=== PATIENT | male | born 1940 | race Caucasian/White ===

== ENCOUNTER 2019-12-04 13:53 | Inpatient (IN) | payer MEDICARE ==
[~2019-12-04] VITALS: Ht 185.4 cm; Wt 111.0 kg
[~2019-12-04 13:53] MED LIST: ASPI325T17 PO; METF500T17 PO; METO50TA82 PO; OXYC5TAB3 PO; SIMV20TA19 PO
--- NOTE | 2019-12-04 14:20 | NUR ---
NILES (P.O.AMalia CONNOR [phone]
[2019-12-04] MEDS ORDERED: PROPOFOL 100 ML IV ONE (14:24)
[2019-12-04] MEDS ORDERED: SODIUM BICARB 8.4%, 50ML SYRINGE ONE ×3 (14:25→22:23)
[2019-12-04] MEDS ORDERED: CALCIUM CHLORIDE 10%, 10ML SYR ONE (14:25)
[2019-12-04 14:26] LABS: MEAN CORPUSCULAR HEMOGLOBIN 28.9 pg (27.5-34.5); MEAN CORPUSCULAR HGB CONC 31.9 g/dL (33.2-36.2); MEAN CORPUSCULAR VOLUME 90.3 fL (81-97); MEAN PLATELET VOLUME 7.7 fL (7.4-10.4); PLATELET COUNT 167 x10^3/uL (130-400); RED BLOOD COUNT 4.74 x10^6/uL (4.38-5.82); RED CELL DISTRIBUTION WIDTH 16.2 % (9.4-14.8)
[2019-12-04] MEDS ORDERED: SODIUM CHLORIDE FLUSH 10ML SYR IVF ONE (14:30)
[2019-12-04] MEDS ORDERED: POTASSIUM CHLORIDE 40 MEQ in SODIUM CHLORIDE 0.9% 500 ML IV ONE (14:30)
[2019-12-04] MEDS ORDERED: NOREPINEPHRINE 8 MG in SODIUM CHLORIDE 0.9% 242 ML IV PRN (14:30)
[2019-12-04 14:35] LABS: INTERNATIONAL NORMALIZED RATIO 1.09 (0.93-1.1); PROTHROMBIN TIME 11.6 Seconds (9.6-11.5)
[2019-12-04 14:37] LABS: ALANINE AMINOTRANSFERASE 227 U/L (12-78); ALBUMIN 3.4 g/dL (3.4-5.0); ANION GAP 15 mmol/L (5-15); CALCIUM 8.5 mg/dL (8.5-10.1); CHLORIDE 110 mmol/L (98-107); CREATININE 1.87 mg/dL (0.7-1.3)
--- NOTE | 2019-12-04 14:39 | NUR ---
Primary RN Ritu at bedside w/ RN Dana & EMT Sinan at bedside initiating hypothermia protocol, place NG & mahoney. MD Helms intubated pt @ 1404 w/ RSI 8.0 ET tube, 24 @ lips, confirmed w/ bilateral breath sounds & positive color change & symmetric chest rise. MD Helms placed right triple lumen IJ CVA using US to confirm placement
[2019-12-04 14:42] LABS: ALKALINE PHOSPHATASE 61 U/L (45-117); BILIRUBIN,TOTAL 0.3 mg/dL (0.2-1.0); TOTAL PROTEIN 6.3 g/dL (6.4-8.2)
[2019-12-04 14:44] LABS: TROPONIN I 0.793 ng/mL (0.000-0.045)
[2019-12-04 15:04] LABS: FREE T4 (FREE THYROXINE) 0.84 ng/dL (0.76-1.46)
[2019-12-04 15:09] LABS: MD YES
[2019-12-04 15:12] LABS: <PLATELET ESTIMATE> ADEQUATE; <PLT MORPHOLOGY> NORMAL PLT MORPH; ANISOCYTOSIS 1+; BAND#(MANUAL) 1.19 x10^3/uL; BANDS%(MANUAL) 9 % (0-7); LYMPHS% (MANUAL) 50 % (22-44); MONOS% (MANUAL) 3 % (2-9); NRBC % (MANUAL) 1 % (0-1); OVALOCYTES 1+; SEG#(MANUAL) 5.02 x10^3/uL (1.8-6.8); SEGS% (MANUAL) 38 % (42-75)
--- NOTE | 2019-12-04 15:12 | NUR ---
POTASSIUM INFUSING PER ORDER. ARTIC SUN PADS IN PLACE, HYPOTHERMIA PROTOCOL. VENT SETTINGS PER RT. AC 12, PEEP 5, V 500, O2 100%.
--- NOTE | 2019-12-04 15:28 | NUR ---
NEXT OF KIN LIZZY HOROWITZ [phone] PER THIS FAMILY MEMBER, GEETA IS NOT THE P.O.A. FOR HIS PT.
--- NOTE | 2019-12-04 15:29 | NUR ---
PT STARTING TO STIR AND BITE AT ETT, PROPOFOL GTT STARTED. PO SUCTIONING WITH BILLYKAUER. VS UPDATED IN COMPUTER.
[2019-12-04] MEDS ORDERED: SODIUM PHOSPHATE 20 MMOL in SODIUM CHLORIDE 0.9% 250 ML IVPB PRN (15:35)
[2019-12-04] MEDS ORDERED: PROPOFOL 100 ML IV PRN (15:35)
--- NOTE | 2019-12-04 15:35 | NUR ---
PROPOFOL INCREASED TO 10MCG. REQUEST FOR ANTIBIOTIC ORDERED.
--- NOTE | 2019-12-04 15:43 | NUR ---
PROPOFOL INCREASED TO 15MCG, PT LOOKS UNCOMFORTABLE STILL. BP STABLE AT 139/66
[2019-12-04] MEDS: AMPICILLIN/SULBACTAM 3 GM in SODIUM CHLORIDE 0.9% 100 ML IV ONE ×2 (15:50→16:15)
--- NOTE | 2019-12-04 15:58 | NUR ---
ETT 26 AT LIPS, MOVED BY RT. RT AT BS, ET SUCTIONING PER RT. PROPOFOL INCREASED TO 20MCG/KG/MIN.
[2019-12-04] MEDS ORDERED: CALCIUM CHLORIDE 13.6 MEQ in SODIUM CHLORIDE 0.9% 100 ML IVPB PRN (16:00)
[2019-12-04] MEDS ORDERED: VECURONIUM 10 MG IVPush PRN (16:00)
[2019-12-04] MEDS ORDERED: AMPICILLIN/SULBACTAM 3 GM in SODIUM CHLORIDE 0.9% 100 ML IV SCH (16:00)
--- NOTE | 2019-12-04 16:07 | NUR ---
LAB IN TO DRAW BC X 2.
--- NOTE | 2019-12-04 16:15 | NUR ---
UNASYN INFUSING AFTER BC X 2 DRAWN. PROPOFOL INCREASED TO 25MCG/KG/MIN
[2019-12-04] MEDS ORDERED: ASPIRIN 325 MG TABLET PO ONE (16:20)
[2019-12-04] MEDS ORDERED: HEPARIN 5,000 UNITS/ML, 1ML IV PRN (16:30)
[2019-12-04] MEDS ORDERED: HEPARIN 5,000 UNITS/ML, 1ML IV ONE (16:30)
[2019-12-04] MEDS ORDERED: ASPIRIN 81 MG TABLET CHEW ONE (16:33)
[2019-12-04] MEDS ORDERED: HEPARIN 5,000 UNITS/ML, 1ML ONE (16:33)
--- NOTE | 2019-12-04 16:45 | NUR ---
PULSE OX MOVED TO HEAD, THEN L EARLOBE. SAT 94%. UNABLE TO GET BP AT THIS TIME, PT SHIVERING. CUFF NOT READING OR GIVING MOST LIKELY ERROR READING OF 254/174. REQUEST FOR FENTANYL AND MANUAL CUFF.
--- NOTE | 2019-12-04 17:00 | NUR ---
REPORT TO CYNTHIA STEARNS READY FOR TRANSPORT.
--- NOTE | 2019-12-04 17:07 | NUR ---
ANESTHESIA ASSOCIATE: FENTANYL GTT GIVEN TO PRIMARY RN FARHEEN Mayberry
--- NOTE | 2019-12-04 17:32 | NUR ---
Kahlil RN: Pt transported via stretcher on zoll w/ primary RN Ritu & RT Emigdio & addition RAPHAEL Gan & "clean" tech Jani to ICU w/ pierre mendez.
[2019-12-04] MEDS: FENTANYL PF 1,000 MCG in SODIUM CHLORIDE 0.9% 80 ML IV PRN (18:35)
[2019-12-04] MEDS: PROPOFOL 100 ML IV PRN (18:35)
[2019-12-04] MEDS: KSCALE TO 4.0 IV SCH ×2 (18:37→22:08)
[2019-12-04] MEDS ORDERED: DEXTROSE 4 GM TAB.CHEW PO PRN (19:00)
[2019-12-04] MEDS ORDERED: DEXTROSE 50%, 50ML SYRINGE IVPush PRN (19:00)
[2019-12-04] MEDS ORDERED: GLUCAGON 1 MG IM PRN (19:00)
[2019-12-04] MEDS: AMPICILLIN/SULBACTAM 3 GM in SODIUM CHLORIDE 0.9% 100 ML IV SCH (20:45)
[2019-12-04] MEDS: BUSPIRONE 10 MG TABLET NG SCH (20:47)
[2019-12-04] MEDS: ARTIFICIAL TEARS OINT 3.5 GM EACHEYE SCH (20:56)
[2019-12-04] MEDS: REGULAR INSULIN 100 UNITS in SODIUM CHLORIDE 0.9% 99 ML IV PRN (21:17)
[2019-12-04] MEDS: INSULIN LISPRO 100 UNITS/ML, PEN SQ-INSULIN SCH (21:20)
[2019-12-04] MEDS: SODIUM CHLORIDE FLUSH 10ML SYR IVF SCH (21:20)
[2019-12-04] MEDS: ATORVASTATIN 80 MG TABLET PO SCH (21:20)
[2019-12-04] MEDS ORDERED: POTASSIUM CHLORIDE PMX 100 ML IV ONE (21:30)
[2019-12-04] MEDS: FAMOTIDINE 20 MG/2 ML IVPush SCH (22:09)
[2019-12-04] MEDS: SODIUM BICARBONATE 8.4% 100 MEQ in DEXTROSE 5% 1,000 ML IV SCH (22:35)
[2019-12-04] MEDS: HEPARIN 25,000 UNITS/250ML PMX 250 ML IV PRN (22:56)
[2019-12-04] MEDS ORDERED: SODIUM BICARBONATE 1 MEQ/ML, 50ML VIAL IVPush ONE ×4 (23:00)
[2019-12-05] MEDS: PROPOFOL 100 ML IV PRN ×2 (01:02→04:13)
[2019-12-05] MEDS: MAGNESIUM SULFATE 1 GM in DEXTROSE 5% 100 ML IVPB PRN ×2 (01:26→21:46)
[2019-12-05] MEDS ORDERED: POTASSIUM CHLORIDE PMX 100 ML IV ONE ×4 (01:30→20:30)
[2019-12-05 02:00] VITALS: BP 97/60
[2019-12-05] MEDS: KSCALE TO 4.0 IV SCH ×6 (03:03→20:43)
[2019-12-05 03:31] LABS: MICROSCOPIC AUTO
[2019-12-05 03:32] LABS: CULTURE INDICATED? YES
[2019-12-05] MEDS: ARTIFICIAL TEARS OINT 3.5 GM EACHEYE SCH ×3 (04:17→20:09)
[2019-12-05] MEDS: NOREPINEPHRINE 8 MG in SODIUM CHLORIDE 0.9% 242 ML IV PRN ×3 (04:24→20:14)
[2019-12-05] MEDS: REGULAR INSULIN 100 UNITS in SODIUM CHLORIDE 0.9% 99 ML IV PRN ×2 (04:24→10:58)
[2019-12-05] MEDS: AMPICILLIN/SULBACTAM 3 GM in SODIUM CHLORIDE 0.9% 100 ML IV SCH ×3 (04:26→20:10)
[2019-12-05 04:51] LABS: CHLORIDE 110 mmol/L (98-107)
[2019-12-05] MEDS: BUSPIRONE 10 MG TABLET NG SCH ×3 (04:52→20:24)
[2019-12-05] MEDS: ASPIRIN 325 MG TABLET PO SCH (04:52)
[2019-12-05 04:57] LABS: BASOPHILS # (AUTO) 0.03 x10^3/uL (0-0.1); BASOPHILS % (AUTO) 0 % (0-1); EOSINOPHILS % (AUTO) 0 % (1-7); LYMPHOCYTES % (AUTO) 5 % (22-44); MD NO; MEAN CORPUSCULAR HEMOGLOBIN 28.7 pg (27.5-34.5); MEAN CORPUSCULAR HGB CONC 32.6 g/dL (33.2-36.2); MEAN CORPUSCULAR VOLUME 88.2 fL (81-97); MEAN PLATELET VOLUME 8.1 fL (7.4-10.4); MONOCYTES # (AUTO) 0.83 x10^3/uL (0.2-0.8); MONOCYTES % (AUTO) 5 % (2-9); NEUTROPHILS # (AUTO) 13.75 x10^3/uL (1.8-6.8); NEUTROPHILS % (AUTO) 89 % (42-75); PLATELET COUNT 206 x10^3/uL (130-400); RED BLOOD COUNT 4.96 x10^6/uL (4.38-5.82); RED CELL DISTRIBUTION WIDTH 15.4 % (9.4-14.8)
[2019-12-05 05:08] LABS: C-REACTIVE PROTEIN, QUANT 2.8 mg/dL (0.02-0.49)
[2019-12-05 05:12] LABS: ALANINE AMINOTRANSFERASE 223 U/L (12-78); ALBUMIN 3.3 g/dL (3.4-5.0); ALKALINE PHOSPHATASE 53 U/L (45-117); ANION GAP 13 mmol/L (5-15); BILIRUBIN,TOTAL 0.5 mg/dL (0.2-1.0); CALCIUM 8.6 mg/dL (8.5-10.1); CHOL/HDL RATIO 3.2; CHOLESTEROL, TOTAL 102 mg/dL (140-239); CREATINE KINASE, TOTAL 1467 U/L (39-308); CREATININE 1.78 mg/dL (0.7-1.3); HDL CHOL % 31 % (26-37); HDL CHOLESTEROL (DIRECT) 32 mg/dL (40-60); LDL CHOLESTEROL,CALCULATED 49 mg/dL (54-169); LDL/HDL RATIO 1.5 (0.5-3.0); TOTAL PROTEIN 6.2 g/dL (6.4-8.2); TRIGLYCERIDES 104 mg/dL (50-200); VLDL CHOLESTEROL 21 mg/dL (0-25)
[2019-12-05] MEDS: MIDAZOLAM HCL 50 MG in SODIUM CHLORIDE 0.9% 40 ML IV PRN ×3 (05:46→21:53)
[2019-12-05 05:55] LABS: D-DIMER 11.91 ug/mlFEU (0.00-0.52)
[2019-12-05] MEDS ORDERED: ASPIRIN 325 MG TABLET PO ONE (06:00)
[2019-12-05] MEDS: INSULIN LISPRO 100 UNITS/ML, PEN SQ-INSULIN SCH ×4 (07:00→20:08)
[2019-12-05] MEDS: SODIUM BICARBONATE 8.4% 100 MEQ in DEXTROSE 5% 1,000 ML IV SCH ×2 (07:42→16:41)
[2019-12-05] MEDS: FENTANYL PF 1,000 MCG in SODIUM CHLORIDE 0.9% 80 ML IV PRN ×2 (09:37→22:35)
[2019-12-05] MEDS: SODIUM CHLORIDE FLUSH 10ML SYR IVF SCH ×2 (09:41→20:19)
[2019-12-05] MEDS: HEPARIN 25,000 UNITS/250ML PMX 250 ML IV PRN (15:03)
[2019-12-05] MEDS ORDERED: POTASSIUM CHLORIDE PMX 100 ML IVPB SCH (17:30)
[2019-12-05] MEDS: ATORVASTATIN 80 MG TABLET PO SCH (20:24)
[2019-12-05] MEDS: FAMOTIDINE 20 MG/2 ML IVPush SCH (20:24)
[2019-12-06] MEDS ORDERED: POTASSIUM CHLORIDE PMX 100 ML IV ONE ×2 (01:00→05:00)
[2019-12-06] MEDS: KSCALE TO 4.0 IV SCH ×3 (01:20→07:53)
[2019-12-06] MEDS: SODIUM BICARBONATE 8.4% 100 MEQ in DEXTROSE 5% 1,000 ML IV SCH (02:15)
[2019-12-06] MEDS: ARTIFICIAL TEARS OINT 3.5 GM EACHEYE SCH (04:20)
[2019-12-06] MEDS: INSULIN LISPRO 100 UNITS/ML, PEN SQ-INSULIN SCH ×2 (04:21→11:21)
[2019-12-06] MEDS: AMPICILLIN/SULBACTAM 3 GM in SODIUM CHLORIDE 0.9% 100 ML IV SCH (04:23)
[2019-12-06] MEDS: BUSPIRONE 10 MG TABLET NG SCH (04:25)
[2019-12-06 04:31] LABS: MEAN CORPUSCULAR HEMOGLOBIN 28.9 pg (27.5-34.5); MEAN CORPUSCULAR HGB CONC 32.5 g/dL (33.2-36.2); MEAN CORPUSCULAR VOLUME 88.9 fL (81-97); MEAN PLATELET VOLUME 7.8 fL (7.4-10.4); PLATELET COUNT 138 x10^3/uL (130-400); RED BLOOD COUNT 4.44 x10^6/uL (4.38-5.82); RED CELL DISTRIBUTION WIDTH 15.5 % (9.4-14.8)
[2019-12-06 04:40] LABS: ALBUMIN 2.7 g/dL (3.4-5.0); ANION GAP 5 mmol/L (5-15); CALCIUM 8.4 mg/dL (8.5-10.1); CHLORIDE 106 mmol/L (98-107)
[2019-12-06 04:43] LABS: ALANINE AMINOTRANSFERASE 151 U/L (12-78); ALKALINE PHOSPHATASE 43 U/L (45-117); BILIRUBIN,TOTAL 0.6 mg/dL (0.2-1.0); CREATININE 1.37 mg/dL (0.7-1.3); TOTAL PROTEIN 5.5 g/dL (6.4-8.2)
[2019-12-06] MEDS: ASPIRIN 325 MG TABLET PO SCH (05:09)
[2019-12-06 05:43] LABS: BASOPHILS # (AUTO) 0.02 x10^3/uL (0-0.1); BASOPHILS % (AUTO) 0 % (0-1); EOSINOPHILS # (AUTO) 0.03 x10^3/uL (0-0.4); EOSINOPHILS % (AUTO) 0 % (1-7); LYMPHOCYTES # (AUTO) 1.59 x10^3/uL (1-3.4); LYMPHOCYTES % (AUTO) 13 % (22-44); MD SCAN; MONOCYTES # (AUTO) 0.48 x10^3/uL (0.2-0.8); MONOCYTES % (AUTO) 4 % (2-9); NEUTROPHILS # (AUTO) 10.63 x10^3/uL (1.8-6.8); NEUTROPHILS % (AUTO) 83 % (42-75)
[2019-12-06] MEDS: NOREPINEPHRINE 8 MG in SODIUM CHLORIDE 0.9% 242 ML IV PRN (07:53)
[2019-12-06] MEDS: SODIUM CHLORIDE FLUSH 10ML SYR IVF SCH (07:53)
[2019-12-06] MEDS ORDERED: HEPARIN 5,000 UNITS/ML, 1ML SQ SCH (10:00)
[2019-12-06] MEDS ORDERED: LORazepam 2 MG/ML, 1ML IV PRN (13:30)
[2019-12-06] MEDS ORDERED: morphine SULFATE 10 MG/ML, 1ML IV ONE (13:30)
[2019-12-06] MEDS ORDERED: LORazepam 2 MG/ML, 1ML IV ONE (13:30)
[2019-12-06] MEDS ORDERED: MORPHINE SULFATE 4 MG/ML, 1ML IV PRN (13:30)
[2019-12-06] MEDS ORDERED: ATROPINE OPHTH SOLN 1%, 5ML PO PRN (13:30)
[2019-12-06] MEDS ORDERED: SODIUM CHLORIDE FLUSH 10ML SYR IVF SCH (21:00)
== END 2019-12-06 18:32 | disposition expired | DRG 208 ==
LOC: EDBD → MERGE 13:53 → ED 14:28 → EDIP 14:32 → SUATTDRO 14:56 → ICU 17:31
PROVIDERS: ADMIT Internal Medicine; ATTEND Internal Medicine
PROC: 5A1945Z Respiratory Ventilation, 24-96 Consecutive Hours (ICD-10-PCS; principal; 2019-12-04)
PROC: 0BH17EZ Insertion of Endotracheal Airway into Trachea, Via Natural or Artificial Opening (ICD-10-PCS; 2019-12-04)
PROC: 02HV33Z Insertion of Infusion Device into Superior Vena Cava, Percutaneous Approach (ICD-10-PCS; 2019-12-04)
PROC: B548ZZA Ultrasonography of Superior Vena Cava, Guidance (ICD-10-PCS; 2019-12-04)
PROC: 04HY32Z Insertion of Monitoring Device into Lower Artery, Percutaneous Approach (ICD-10-PCS; 2019-12-04)
PROC: 0T9B70Z Drainage of Bladder with Drainage Device, Via Natural or Artificial Opening (ICD-10-PCS; 2019-12-05)
DX: J96.01 Acute respiratory failure with hypoxia (principal); I21.4 Non-ST elevation (NSTEMI) myocardial infarction; G93.41 Metabolic encephalopathy; J69.0 Pneumonitis due to inhalation of food and vomit; K72.00 Acute and subacute hepatic failure without coma; N17.0 Acute kidney failure with tubular necrosis; Z99.11 Dependence on respirator [ventilator] status; E87.2 Acidosis; G93.1 Anoxic brain damage, not elsewhere classified; I49.01 Ventricular fibrillation; F17.210 Nicotine dependence, cigarettes, uncomplicated; I10 Essential (primary) hypertension; Z96.641 Presence of right artificial hip joint; Z66 Do not resuscitate; Z51.5 Encounter for palliative care; E11.65 Type 2 diabetes mellitus with hyperglycemia; E78.5 Hyperlipidemia, unspecified; E87.6 Hypokalemia; R57.0 Cardiogenic shock; F17.200 Nicotine dependence, unspecified, uncomplicated; G47.33 Obstructive sleep apnea (adult) (pediatric); Z90.89 Acquired absence of other organs; Z90.49 Acquired absence of other specified parts of digestive tract; Z79.84 Long term (current) use of oral hypoglycemic drugs; Z20.828 Contact with and (suspected) exposure to other viral communicable diseases
CPT/HCPCS: 31500; 36556; 36600; 51702; 71045; 80047; 80053; 80061; 81001; 82330; 82550; 82803; 82962; 83605; 83615; 83735; 83880; 84100; 84132; 84145; 84439; 84443; 84478; 84484; 85025; 85379; 85520; 85610; 85730; 86140; 87040; 87081; 87086; 92950; 93005; 94002; 94003; 96374; 96375; 99291; G0378; J0295; J1644; J1815; J2250; J2704; J3010; J3475; J3480; J7070; J2060; J2270; J3490; J7040; J7050; U0001